=== PATIENT | female | born 1965 | race African-American/Black ===

== ENCOUNTER 2018-01-26 02:39 | Inpatient (IN) | payer MEDICARE, OTHER ==
[~2018-01-26] VITALS: Ht 160 cm; Wt 64.9 kg
[2018-01-26] MEDS ORDERED: NKM (02:51)
[2018-01-26] MEDS ORDERED: Mylanta II UD 30ml ORAL ONE (03:00)
[2018-01-26] MEDS ORDERED: Aspirin Baby 81mg ORAL ONE (03:00)
--- NOTE | 2018-01-26 03:03 | Emergency Room Report ---
History of Present Illness General Chief Complaint: Chest Pain Source: Patient Present Illness HPI Is a 52-year-old female with no past medical history. She presents with chief complaint of chest pain. Onset was around 4 hours ago. It woke her up from sleep. It was epigastric area waiting to her neck. She does feel short of breath. Worse with exertion. No diaphoresis. No nausea no vomiting. No fever chills but no cough. Never had this problem before. Mom of a heart attack at 48. Allergies: Coded Allergies: No Known Allergies (Unverified , 01/26/18) Patient History Past Medical History: see triage record, old chart reviewed Past Surgical History: none Pertinent Family History: DC Social History: Denies: smoking Now: No Immunizations: other Reviewed Nursing Documentation: PMH: Agreed; PSxH: Agreed Nursing Documentation-PMH Hx Cardiac Problems: Yes - HIGH CHOLESTEROL Review of Systems Eye: Denies: eye pain, blurred vision ENT: Denies: ear pain, nose congestion, throat swelling Respiratory: Denies: cough, shortness of breath Cardiovascular: Reports: chest pain; Denies: palpitations Gastrointestinal: Denies: abdominal pain, diarrhea, nausea, vomiting Musculoskeletal: Denies: back pain, joint pain Skin: Denies: rash Neurological: Denies: headache, numbness Endocrine: Denies: increased thirst, increased urine Hematologic/Lymphatic: Denies: easy bruising All Other Systems: negative except mentioned in HPI Physical Exam Vital Signs Date Time Temp Pulse Resp B/P (MAP) Pulse Ox O2 Delivery O2 Flow Rate FiO2 01/26/18 02:50 98.0 80 18 128/80 100 Room Air 98.1 vitals normal Sp02 EP Interpretation: reviewed, normal General Appearance: well appearing, no apparent distress, alert Head: normocephalic, atraumatic Eyes: bilateral eye PERRL, bilateral eye EOMI ENT: hearing grossly normal, normal pharynx Neck: full range of motion, supple, no meningismus Respiratory: lungs clear, normal breath sounds, other - diffuse pain across the sternum with palpation Cardiovascular #1: regular rate, rhythm, no murmur Gastrointestinal: normal bowel sounds, non tender, no mass, no organomegaly, no bruit, non-distended Musculoskeletal: back normal, gait/station normal, normal range of motion Psychiatric: mood/affect normal Skin: warm/dry Medical Decision Making Diagnostic Impression: Primary Impression: Chest pain Qualified Codes: R07.9 - Chest pain, unspecified Additional Impression: UTI (urinary tract infection) Qualified Codes: N30.00 - Acute cystitis without hematuria ER Course Patient presents with chest pain. It is reproducible but does have radiation to her neck and exertional component. She is much better now. EKG is unremarkable. First set of troponin is negative. She does have a strong family history with mom dying of a heart attack at age 48. We will admit for further workup. I discussed case with Dr. Alves who will admit. Lab Results Impression labs normal EKG Diagnostic Results Rate: normal Rhythm: NSR ST Segments: no acute changes ASA given to the pt in ED: Yes Rhythm Strip Diag. Results Rhythm Strip Time: 03:02 EP Interpretation: yes Rate: 78 Rhythm: NSR, no PVC's, no ectopy Chest X-Ray Diagnostic Results Chest X-Ray Diagnostic Results : Chest X-Ray Ordered: Yes # of Views/Limited/Complete: 1 View Indication: Chest Pain EP Interpretation: Yes Interpretation: no consolidation, no effusion, no pneumothorax, no acute cardiopulmonary disease Impression: No acute disease Electronically Signed by: Sohail Craig MD Last Vital Signs Date Time Temp Pulse Resp B/P (MAP) Pulse Ox O2 Delivery O2 Flow Rate FiO2 18 02:50 98.0 80 18 128/80 100 Room Air 98.1 Status: improved Disposition: ADMITTED INPATIENT Condition: Serious SOHAIL CRAIG M.D. Jan 26, 2018 03:03
[2018-01-26 03:24] LABS: BILIRUBIN, URINE NEGATIVE (NEGATIVE); GLUCOSE, URINE (UA) NEGATIVE (NEGATIVE); KETONES,URINE NEGATIVE (NEGATIVE); LEUKOCYTE ESTERASE ,URINE 3+ (NEGATIVE); NITRITE,URINE NEGATIVE (NEGATIVE); PH,URINE 6 (4.5-8.0); PROTEIN,URINE 1+ (NEGATIVE); UROBILINOGEN,URINE NORMAL MG/DL (0.0-1.0)
[2018-01-26 03:30] LABS: ANION GAP 11 mmol/L (5-15); BASOPHILS % (AUTO) 1.3 % (0.0-2.0); BLOOD UREA NITROGEN 9 mg/dL (7-18); CALCIUM 9.3 MG/DL (8.5-10.1); CARBON DIOXIDE 25 MMOL/L (21-32); CHLORIDE 103 MMOL/L (98-107); CREATININE 0.9 MG/DL (0.55-1.30); EOSINOPHILS % (AUTO) 1.2 % (0.0-3.0); HEMOGLOBIN 12.9 G/DL (12.0-16.0); LYMPHOCYTES % (AUTO) 52.8 % (20.0-45.0); MEAN CORPUSCULAR VOLUME 96 FL (80-99); MONOCYTES % (AUTO) 12.7 % (1.0-10.0); PLATELET COUNT 197 K/UL (150-450); POTASSIUM 3.9 MMOL/L (3.5-5.1); RED BLOOD COUNT 4.06 M/UL (4.20-5.40); RED CELL DISTRIBUTION WIDTH 11.1 % (11.6-14.8); SODIUM 139 MMOL/L (136-145); WHITE BLOOD COUNT 3.6 K/UL (4.8-10.8)
[2018-01-26 03:42] LABS: APPEARANCE,URINE SLIGHTLY CLOUDY; COLOR,URINE PALE YELLOW
[2018-01-26 03:45] LABS: ALANINE AMINOTRANSFERASE 18 U/L (12-78); ALBUMIN 3.8 G/DL (3.4-5.0); ALBUMIN/GLOBULIN RATIO 0.9 (1.0-2.7); ALKALINE PHOSPHATASE 40 U/L (46-116); ASPARTATE AMINO TRANSFERASE 17 U/L (15-37); BILIRUBIN,TOTAL 0.8 MG/DL (0.2-1.0); CKMB 0.5 NG/ML (0.0-3.6); CREATINE KINASE 87 U/L (26-308)
[2018-01-26] MEDS ORDERED: cefTRIAXone 1 GM in NS 55 ML IVPB ONE (04:15)
[2018-01-26 05:50] VITALS: BP 114/75
[2018-01-26 08:37] VITALS: BP 126/75
[2018-01-26] MEDS ORDERED: Heparin 5000 units/ml inj SUBQ SCH ×2 (11:00→21:00)
[2018-01-26] MEDS ORDERED: Aspirin EC 325mg tab ORAL SCH (11:00)
--- NOTE | 2018-01-26 11:00 | Diagnostic Imaging Report ---
Indication: Chest pain Technique: One view of the chest Comparison: none Findings: Lungs and pleural spaces are clear. Heart size is normal Impression: No acute process
[2018-01-26] MEDS ORDERED: Morphine Sulfate 4mg/ml Inj IVP PRN (11:45)
--- NOTE | 2018-01-26 13:49 | Cardiology Report ---
APPROVED REPORT EKG Measurement Heart [id number] Normal sinus rhythm Cannot rule out Anterior infarct, age undetermined Abnormal ECG
[2018-01-26] MEDS ORDERED: Levofloxacin 500mg tab ORAL SCH (17:30)
--- NOTE | 2018-01-26 19:30 | History and Physical Report ---
DATE OF ADMISSION: 01/26/2018 HISTORY OF PRESENT ILLNESS: This is a 52-year-old female with an unremarkable past history. She states she was woken up at 11 p.m. with substernal chest pain that radiated towards the right neck and right shoulder. She went back to sleep, but the pain woke her up again. She came to the hospital. She has a family history of early CAD. PAST HISTORY: None. SURGERIES: None. ALLERGIES: None. HOME MEDICATIONS: None. SOCIAL HISTORY: No history of alcohol or tobacco usage. She does report a history of hyperlipidemia, but takes no medications. The patient denies any headaches, hematemesis, melena, or hematochezia. PHYSICAL EXAMINATION: GENERAL: A young female. HEENT: Unremarkable. LUNGS: Clear breath sounds bilaterally. ABDOMEN: Soft. NEUROLOGIC: Nonfocal. LABORATORY AND DIAGNOSTIC DATA: Lab testing shows normal CBC and BMP. Troponin is negative. EKG, normal sinus rhythm. Imaging studies per ER physician unremarkable. IMPRESSION: 1. Substernal chest pain, rule out acute coronary syndrome. 2. Hyperlipidemia. DISCUSSION: Admitted to the hospital. Check serial troponins. We will consult Cardiology. Order stress test. 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 Randy Alves M.D. DR: DIEGO JOB#: [id number] CC:
[2018-01-26 20:00] VITALS: BP 123/66
[2018-01-27] VITALS: BP 102/67
--- NOTE | 2018-01-27 01:45 | Consultation ---
DATE OF CONSULTATION: 01/26/2018 CONSULTING PHYSICIAN: Raymundo Vieyra M.D. REQUESTING PHYSICIAN: Randy Alves M.D. REASON FOR CONSULTATION: Chest pain. HISTORY OF PRESENT ILLNESS: This is a 52-year-old female. She was awakened last night from sleep with substernal chest pressure that radiated to her neck and shoulder on the right side. It was unprovoked again and woke her from sleep. It lasted fair enough time for her to come to the emergency room. Her coronary risk factors include hyperlipidemia and family history, both her parents in their 50s of heart attack. PAST MEDICAL HISTORY: Otherwise unremarkable. MEDICATIONS PRIOR TO ADMISSION: None. ALLERGIES: None. SOCIAL HISTORY: Negative for smoking, alcohol, or substance abuse. REVIEW OF SYSTEMS: A 10-point review of systems performed. All systems negative other than noted above. PHYSICAL EXAMINATION: GENERAL: The patient is well developed, well nourished, in no distress. VITAL SIGNS: Blood pressure 126/75, pulse 58, respirations 16, and afebrile. NECK: Supple. Jugular venous pressure normal. No xanthoma. LUNGS: Clear. CARDIAC: Regular rhythm and rate. Normal S1, S2 with a fourth heart sound. ABDOMEN: Soft and nontender. EXTREMITIES: No edema. Distal pulses 2+. DIAGNOSTIC AND LABORATORY DATA: EKG reveals sinus rhythm, possible anterior infarction of indeterminate age. Troponin levels negative x2. Potassium 3.9. Renal function normal. Hemoglobin 12.9. IMPRESSION: 1. Acute coronary syndrome. 2. History of hyperlipidemia. 3. Significant family history of sudden cardiac . PLAN: 1. Cardiac monitoring. 2. Continue anti-platelet therapy. 3. Myocardial perfusion scan for assessment of coronary flow reserve. 4. Full lipid panel. 5. DVT prophylaxis. Raymundo Vieyra M.D. DR: MERLE JOB#: [id number] CC:
[2018-01-27 04:00] VITALS: BP 115/78
[2018-01-27 08:00] VITALS: BP 133/83
--- NOTE | 2018-01-27 08:32 | Pulmonology Progress Note ---
Assessment/Plan Assessment/Plan IMPRESSION: 1. Substernal chest pain, rule out acute coronary syndrome. Stress test negative 2. Hyperlipidemia. 3. negative troponins 4. UTI DISCUSSION: DC home PO levaquin Subjective Interval Events: Stress ECHO normal Constitutional: Reports: no symptoms HEENT: Repors: no symptoms Respiratory: Reports: no symptoms Cardiovascular: Reports: no symptoms Allergies: Coded Allergies: No Known Allergies (Unverified , 01/26/18) Objective Last 24 Hour Vital Signs Date Time Temp Pulse Resp B/P (MAP) Pulse Ox O2 Delivery O2 Flow Rate FiO2 01/27/18 04:00 53 01/27/18 04:00 98.1 58 20 115/78 100 Room Air 98.1 01/27/18 00:00 97.9 62 20 102/67 94 Room Air 97.9 01/27/18 00:00 58 01/26/18 20:00 97.7 80 20 123/66 94 Room Air 97.7 01/26/18 20:00 52 01/26/18 18:11 97.9 01/26/18 17:41 97.9 01/26/18 16:00 56 01/26/18 12:00 57 01/26/18 08:39 97.9 58 16 126/75 100 Room Air 01/26/18 08:37 97.9 58 16 126/75 100 Room Air 97.9 Intake and Output 01/26/18 01/27/18 19:00 07:00 Intake Total 500 ml Balance 500 ml Intake Oral 500 ml # Voids 2 General Appearance: no acute distress HEENT: normocephalic Respiratory/Chest: chest wall non-tender, lungs clear Cardiovascular: normal peripheral pulses Microbiology Date/Time Source Procedure Growth Status 01/26/18 03:09 Urine,Clean Catch Urine Culture - Preliminary Resulted Laboratory Tests 01/26/18 11:55: Troponin I 0.020 01/26/18 19:45: Troponin I 0.011 Current Medications Medications (Trade) Dose Ordered Sig/Miguel Route PRN Reason Start Time Stop Time Status Last Admin Dose Admin Aspirin (Ecotrin) 81 mg DAILY ORAL 01/27/18 09:00 02/26/18 08:59 Dextrose (Dextrose 50%) 25 ml STAT PRN IV Hypoglycemia 01/26/18 10:00 02/25/18 09:59 Dextrose (Dextrose 50%) 50 ml STAT PRN IV Hypoglycemia 01/26/18 10:00 02/25/18 09:59 Heparin Sodium (Porcine) (Heparin 5000 units/ml) 5,000 units EVERY 12 HOURS SUBQ 01/26/18 21:00 02/25/18 20:59 01/26/18 21:41 Levofloxacin (Levaquin) 500 mg DAILY ORAL 01/26/18 17:30 02/02/18 17:29 01/26/18 17:41 Morphine Sulfate (Morphine Sulfate) 1 mg Q4H PRN IVP For Pain 01/26/18 11:45 02/02/18 11:44 01/26/18 17:41 Randy Alves MD Jan 27, 2018 08:32
[2018-01-27] MEDS ORDERED: LEVAQUIN500 MG ORAL (08:33)
[2018-01-27] MEDS ORDERED: Aspirin EC 325mg tab ORAL SCH (09:00)
[2018-01-27] MEDS ORDERED: Aspirin EC 81mg tab ORAL SCH (09:00)
--- NOTE | 2018-01-28 06:15 | Progress Note ---
DATE: 01/27/2018 CARDIOLOGY PROGRESS NOTE SUBJECTIVE: The patient had a stress test yesterday and study was negative for exercise-induced ischemia. The patient has not had any recurring chest pain. Troponin levels were negative. She is on antibiotics for urinary tract infection. Lipid parameters will be checked as an outpatient. OBJECTIVE: VITAL SIGNS: Blood pressure 115/78, pulse 58, and respiratory rate 20. LUNGS: Clear. CARDIAC: Regular. ABDOMEN: Soft. EXTREMITIES: No edema. IMPRESSION: 1. No signs of acute coronary insufficiency. The patient is at high risk for accelerated coronary artery disease based on her family history as well as history of hyperlipidemia. Recommend long-term anti-platelet therapy. 2. Follow up lipid panel. 3. Consideration for statin drug depending on results. 4. Consider outpatient coronary calcium scan and outpatient Cardiology followup will be arranged. Raymundo Vieyra M.D. DR: NATE JOB#: [id number] CC:
--- NOTE | 2018-01-28 11:05 | Discharge Summary ---
Discharge Summary Discharge Summary _ DATE OF ADMISSION: 01/26/2018 DATE OF DISCHARGE: 01/27/2018 CONSULTANTS: Dr. Raymundo Vieyra BRIEF HOSPITAL COURSE: Patient is a 52-year-old female, who presented to Ed for evaluation of chest pain. She stated she was awakened at 11 PM with substernal chest pain that radiated toward the right neck and right shoulder. She went back to sleep, however, pain woke her up again. She has a family history of early coronary artery disease, mom of heart attack at age of 48. She claims to have high cholesterol but is not on any medication. On evaluation at ED, vitals were stable. Initial troponin was negative. EKG was in normal sinus rhythm with no acute changes. Chest x-ray showed no acute disease. She was admitted for evaluation of substernal chest pain to rule out acute coronary syndrome. She underwent cardiac evaluation and was seen by missile control pilot. Her coronary risk factors include hyperlipidemia and family history of having both parents early of heart attack. Cardiac troponins were monitored and was placed she was placed on aspirin daily. Troponin was negative x3. She underwent treadmill stress test, there was no sign of acute coronary insufficiency. She is at high risk for accelerated coronary artery disease based on family history as well as hyperlipidemia. She was recommended long-term antiplatelet therapy with consideration for a statin drug. Urine culture with growth of staph aureus. She was placed on po Levaquin. Due to rapid unexpected resolution of symptoms with a negative work-up, she was cleared for discharge home to follow up with PCP as outpatient. FINAL DIAGNOSES: Substernal chest pain, stress test negative High risk for accelerated coronary artery disease Hyperlipidemia Urinary tract infection with staph aureus DISPOSITION: Patient was discharged home. DISCHARGE MEDICATIONS: Refer to Discharge Medication List. Continue with Levaquin 500 milligrams daily for 6 more days. DISCHARGE INSTRUCTIONS: Follow up with PCP in a week. Consider outpatient coronary calcium scan and cardiology follow-up. I have been assigned to dictate discharge summary on this account, and I was not involved in the patient's management. Liset Medina NP Jan 28, 2018 11:05
== END 2018-01-27 09:00 | disposition home or self-care (01) | DRG 313 ==
LOC: EMR 03:01 → 2E 04:58 → EDBEDREQ 05:22
DX: R07.89 Other chest pain (principal); N39.0 Urinary tract infection, site not specified; B95.61 Methicillin susceptible Staphylococcus aureus infection as the cause of diseases classified elsewhere; E78.5 Hyperlipidemia, unspecified; Z82.41 Family history of sudden cardiac death; Z82.49 Family history of ischemic heart disease and other diseases of the circulatory system
CPT/HCPCS: 36415; 71045; 80053; 81003; 82550; 82553; 84484; 85025; 87086; 87181; 93005; 93017; 93350; 99285